=== PATIENT | male | born 1985 | race Hispanic/Latino ===

== ENCOUNTER 2018-05-01 23:56 | Emergency (ER) | payer BC ==
[2018-05-02 00:15] VITALS: BP 152/92; PULSE 80; RESP 17; TEMP 98.5; O2SAT 98
--- NOTE | 2018-05-02 00:31 | ED PDOC ---
Lower Extremity Pain/Injury Time Seen by Provider: 05/02/18 00:23 Chief Complaint (Nursing): Abnormal Skin Integrity Chief Complaint (Provider): Abnormal Skin Integrity History Per: Patient History/Exam Limitations: no limitations Additional Complaint(s): 32 y/o male with no significant PMHx presents to the ED complaining of a right lower extremity injury. Patient reports he injured himself with an ice skate and incurred an injury just above his right knee. Patient is unsure if he requires stitches. He reports its is not painful and denies any active bleeding. He denies any associated injury. Past Medical History Reviewed: Historical Data, Nursing Documentation, Vital Signs Vital Signs: Last Vital Signs Temp 98.5 F 05/02/18 00:13 Pulse 80 05/02/18 00:13 Resp 17 05/02/18 00:13 BP 152/92 H 05/02/18 00:13 Pulse Ox 98 05/02/18 00:13 - Medical History PMH: No Chronic Diseases - Surgical History Surgical History: No Surg Hx - Family History Family History: States: Unknown Family Hx - Immunization History Hx Tetanus Toxoid Vaccination: Yes - Allergies Allergies/Adverse Reactions: Allergies Allergy/AdvReac Type Severity Reaction Status Date / Time No Known Allergies Allergy Verified 05/02/18 00:15 Review of Systems ROS Statement: Except As Marked, All Systems Reviewed And Found Negative Skin: Positive for: Other (cut to right lower extremity) Physical Exam - Reviewed Nursing Documentation Reviewed: Yes Vital Signs Reviewed: Yes - Physical Exam Appears: Positive for: Non-toxic, No Acute Distress Head Exam: Positive for: ATRAUMATIC, NORMOCEPHALIC Skin: Positive for: Normal Color, Warm, Dry Eye Exam: Positive for: EOMI, Normal appearance, PERRL Extremity: Positive for: Normal ROM, Other (2 cm superficial abrasion approximated, no active bleeding). Negative for: Pedal Edema, Deformity Neurologic/Psych: Positive for: Alert, Oriented. Negative for: Motor/Sensory Deficits - ECG O2 Sat by Pulse Oximetry: 98 (RA) Pulse Ox Interpretation: Normal Medical Decision Making Medical Decision Making: Time: 00:23 Initial Impression: 32 y/o male with minor injury Initial Plan: Patient informed he does not need stitches but steristrip dressing could be applied if patient would like. Patient states he is worried about additional cost incurred in the ER. He feels comfortable to dress wound at home. Stable for discharge. Patient also reported he has tetanus less than 10 years ago.Diagnosis is skin abrasion. Scribe Attestation: Documented by Damon Bermudez acting as a scribe for Cuauhtemoc Sanon MD. Provider Scribe Attestation: All medical record entries made by the Scribe were at my direction and personally dictated by me. I have reviewed the chart and agree that the record accurately reflects my personal performance of the history, physical exam, medical decision making, and the department course for this patient. I have also personally directed, reviewed, and agree with the discharge instructions and disposition. Disposition - Clinical Impression Clinical Impression: Abrasion - Patient ED Disposition Is Patient to be Admitted: No - Disposition Disposition: Routine/Home Disposition Time: 00:35 Condition: STABLE Additional Instructions: DUKE RANDHAWA, thank you for letting us take care of you today. Your provider was Cuauhtemoc Sanon MD and you were treated for RT LEG INJURY. The emergency medical care you received today was directed at your acute symptoms. If you were prescribed any medication, please fill it and take as directed. It may take several days for your symptoms to resolve. Return to the Emergency Department if your symptoms worsen, do not improve, or if you have any other problems. Please contact your doctor or call one of the physicians/clinics you have been referred to that are listed on the Patient Visit Information form that is included in your discharge packet. Bring any paperwork you were given at discharge with you along with any medications you are taking to your follow up visit. Our treatment cannot replace ongoing medical care by a primary care provider outside of the emergency department. Thank you for allowing the [facility] team to be part of your care today. If you had an X-Ray or CT scan: A Radiologist will review the ED reading if any change in treatment is needed we will contact you. If you had a blood, urine, or wound culture: It will take several days for the results, if any change in treatment is needed we will contact you. If you had an STI test: It will take 48 hours for the results. Please call after 1 week if you have not heard back. Instructions: Skin Abrasions Forms: [employer] ([place])
== END 2018-05-02 00:36 | disposition home or self-care (01) ==
LOC: H.ER 23:56
DX: S80.811A Abrasion, right lower leg, initial encounter (principal); W26.8XXA Contact with other sharp object(s), not elsewhere classified, initial encounter; Y92.89 Other specified places as the place of occurrence of the external cause